=== PATIENT | male | born 1965 | race Two or more races ===

== ENCOUNTER 2024-02-04 16:14 | Emergency (ER) | payer MEDICAID ==
[~2024-02-04] VITALS: Ht 167.6 cm; Wt 91.4 kg
[2024-02-04 17:13] LABS: Basophils # (auto) 0 10 ^3/uL (0-0.2); Eosinophils # (auto) 0.3 10 ^3/uL (0-0.8); Eosinophils % (auto) 6.1 % (0.0-7.0); Hemoglobin 14.4 g/dL (13.5-17.5); Lymphocytes # (auto) 1.5 10 ^3/uL (0.4-5.4); Lymphocytes % (auto) 36.3 % (10.0-50.0); Mean Corpuscular Hemoglobin 30.5 pg (28.0-32.0); Mean Corpuscular Hgb Conc. 33.5 g/dL (32.0-36.0); Mean Corpuscular Volume 91.1 fL (80.0-100.0); Monocytes # (auto) 0.4 10 ^3/uL (0-1.3); Monocytes % (auto) 8.8 % (0.0-12.0); Neutrophils % (auto) 47.8 % (37.0-80.0); Nucleated Red Blood Cells % 0.1 %; Red Blood Cells 4.72 10^6/uL (4.5-5.90); Red Cell Distribution Width 14.5 % (11.8-14.3); White Blood Cell 4.3 10^3/uL (4.4-10.8)
[2024-02-04 17:31] LABS: Alanine Aminotransferase 19 U/L (7-40); Albumin 4.2 g/dL (3.2-4.8); Alkaline Phosphatase 85 U/L (46-116); Anion Gap 6 (5-15); Aspartate Aminotransferase 9 U/L (13-40); BUN/Creatinine Ratio 11.6 (10.0-20.0); Blood Urea Nitrogen 10 mg/dL (9-23); Calcium 9.4 mg/dL (8.7-10.4); Carbon Dioxide 25 mmol/L (20-30); Chloride 111 mmol/L (98-107); Glucose 154 mg/dL (74-106); Magnesium 2.1 mg/dL (1.6-2.6); Potassium 3.8 mmol/L (3.5-5.1); Sodium 142 mmol/L (136-145)
[2024-02-04 17:32] LABS: Bilirubin, Total 0.7 mg/dL (0.2-1.0); Total Protein 6.8 g/dL (5.7-8.2)
[2024-02-04 17:42] LABS: INR 1.03 (0.9-1.15); Partial Thromboplastin Time 27.1 SEC (24.5-34.5); Prothrombin Time 10.9 sec (9.3-11.8)
[2024-02-04] MEDS: MAALOX PLUS or MAALOX 30 ML PO ONE (18:42)
[2024-02-04] MEDS: LIDOCAINE VISCOUS 2% 15ML UD MT ONE (18:42)
[2024-02-04 19:39] VITALS: BP 157/83; PULSE 67; RESP 16; TEMP 97.8; O2SAT 98
== END 2024-02-04 19:38 | disposition home or self-care (01) ==
LOC: ER 16:14
DX: R07.89 Other chest pain (principal); Z79.899 Other long term (current) drug therapy
CPT/HCPCS: 36415; 71045; 80053; 83735; 83880; 84484; 85025; 85610; 85730; 93005

== ENCOUNTER 2024-02-13 15:01 | Emergency (ER) | payer MEDICAID ==
[~2024-02-13] VITALS: Ht 165.1 cm; Wt 91.2 kg
[2024-02-13 15:27] VITALS: BP 134/87; PULSE 91; RESP 15; TEMP 98; O2SAT 99
[2024-02-13] MEDS ORDERED: IBUP-1456 PO (15:53)
[2024-02-13] MEDS ORDERED: TRIA0.02 TOP (15:53)
[2024-02-13] MEDS ORDERED: ACYC1TAB3 PO (15:53)
== END 2024-02-13 16:02 | disposition home or self-care (01) ==
LOC: ER 15:01
DX: B02.9 Zoster without complications (principal); Z79.899 Other long term (current) drug therapy